=== PATIENT | female | born 1990 | race Caucasian/White ===

== ENCOUNTER 2018-04-16 09:24 | Outpatient (CLI) | payer OTHER | END 2018-04-16 12:34 | disposition home or self-care (01) | LOC: OBT 09:24 → L-D 09:24 → OBT 12:34 | DX: O48.0 Post-term pregnancy (principal); Z3A.40 40 weeks gestation of pregnancy | CPT/HCPCS: 76815; 76818 ==

== ENCOUNTER 2018-04-19 08:41 | Outpatient (CLI) | payer OTHER | END 2018-04-19 11:50 | disposition home or self-care (01) | LOC: OBT 08:41 → L-D 08:41 → OBT 11:50 | DX: O48.0 Post-term pregnancy (principal); Z3A.40 40 weeks gestation of pregnancy | CPT/HCPCS: 76818 ==

== ENCOUNTER 2018-04-21 21:28 | Outpatient (CLI) | payer OTHER | END 2018-04-21 22:31 | disposition home or self-care (01) | LOC: OBT 21:28 → L-D 21:28 → OBT 22:31 | DX: O60.03 Preterm labor without delivery, third trimester (principal); Z3A.40 40 weeks gestation of pregnancy | CPT/HCPCS: 76818 ==

== ENCOUNTER 2018-04-22 12:48 | Inpatient (IN) | payer OTHER ==
[2018-04-22] MEDS ORDERED: MISOPROSTOL 50 MCG CAPSULE PO (13:00)
[2018-04-22] MEDS ORDERED: MISOPROSTOL 200 MCG TAB PR (13:00)
[2018-04-22] MEDS ORDERED: BUTORPHANOL 2 MG INJ IV (13:00)
[2018-04-22] MEDS ORDERED: METHYLERGONOVINE 0.2 MG INJ IM (13:00)
[2018-04-22] MEDS ORDERED: CARBOPROST 250 MCG INJ IM (13:00)
[2018-04-22] MEDS ORDERED: LIDOCAINE 1% (MPF) 30 ML INJ INJ (13:00)
[2018-04-22] MEDS ORDERED: OXYTOCIN 30 UNITS/LR 500 ML IV ×2 (13:00→18:00)
[2018-04-22] MEDS: LACTATED RINGER'S 1,000 ML IV ×2 (13:20→19:52)
[2018-04-22 13:21] LABS: ADD MAN DIFF? NO
[2018-04-22 13:26] LABS: WHITE BLOOD COUNT 7.2 10^3/ul (4.8-10.8)
[2018-04-22 13:26] LABS: BASOPHILS % 0.3 % (0.0-2.0); EOSINOPHILS # 0.2 10^3/ul (0.0-0.5); EOSINOPHILS % 2.1 % (0.0-7.0); HEMATOCRIT 31.2 % (37.0-47.0); LYMPHOCYTES # 2.2 10^3/ul (0.8-2.9); MEAN CORPUSCULAR HEMOGLOBIN 27.1 pg (29.0-33.0); MEAN CORPUSCULAR HGB CONC 32.1 g/dl (32.0-37.0); MEAN CORPUSCULAR VOLUME 84.6 fl (82.0-101.0); MEAN PLATELET VOLUME 10.5 fl (7.4-10.4); MONOCYTE # 0.6 10^3/ul (0.3-0.9); MONOCYTES % 7.8 % (0.0-11.0); NEUTROPHIL # 4.2 10^3/ul (1.6-7.5); NEUTROPHILS % 58.5 % (39.0-77.0); PLATELET COUNT 280 10^3/UL (140-415); RED BLOOD COUNT 3.69 10^6/ul (4.20-5.40); RED CELL DISTRIBUTION WIDTH 15.3 % (11.5-14.5)
[2018-04-22 13:41] LABS: INR 0.84; PROTIME 11.6 Sec (11.9-14.9); PT RATIO 0.9
[2018-04-22 13:42] LABS: PARTIAL THROMBOPLASTIN TIME 26.7 Sec (23.0-35.0)
[2018-04-22 13:53] LABS: ALANINE AMINOTRANSFERASE 25 IU/L (13-69); ALBUMIN 3.4 g/dl (3.3-4.9); ALKALINE PHOSPHATASE 220 IU/L (42-121); ANION GAP 7 (5-13); ASPARTATE AMINO TRANSFERASE 25 IU/L (15-46); BLOOD UREA NITROGEN 11 mg/dl (7-20); CALCIUM 9.4 mg/dl (8.4-10.2); CARBON DIOXIDE 21 mmol/L (21-31); CHLORIDE 108 mmol/L (97-110); CREATININE 0.49 mg/dl (0.44-1.00); Estimated GFR > 60 mL/min (>60); GLUCOSE 84 mg/dl (70-220); POTASSIUM 4.6 mmol/L (3.5-5.1); SODIUM 136 mmol/L (135-144); TOTAL PROTEIN 6.8 g/dl (6.1-8.1)
[2018-04-22 14:23] LABS: HEPATITIS B SURFACE ANTIGEN NEGATIVE (NEGATIVE)
[2018-04-22 16:28] LABS: RAPID PLASMA REAGIN NONREACTIVE (NR)
[2018-04-22] MEDS: OXYTOCIN 30 UNITS/LR 500 ML IV (17:57)
[2018-04-22] MEDS: MISOPROSTOL 50 MCG CAPSULE PO ×2 (19:49)
[2018-04-22] MEDS ORDERED: FENTAnyl 2MCG/ML-ROPIV 0.2% 100 ML (21:35)
[2018-04-22] MEDS ORDERED: DIPHENHYDRAMINE 50 MG INJ IV (22:00)
[2018-04-22] MEDS ORDERED: FENTAnyl 2MCG/ML-ROPIV 0.2% 100 ML BAG EPI (22:00)
[2018-04-22] MEDS ORDERED: ONDANSETRON 4 MG INJ IV (22:00)
[2018-04-22] MEDS ORDERED: NALOXONE (0.4 MG/ML) INJ IV (22:00)
[2018-04-23] MEDS: MISOPROSTOL 50 MCG CAPSULE PO ×2 (02:00→02:57)
[2018-04-23] MEDS: LACTATED RINGER'S 1,000 ML IV (02:57)
[2018-04-23] MEDS: OXYTOCIN 30 UNITS/LR 500 ML IV ×2 (04:15→04:16)
[2018-04-23] MEDS: IBUPROFEN 600 MG TAB PO ×5 (04:43→23:40)
[2018-04-23] MEDS: MINERAL OIL LIGHT 10 ML VIAL TOP (04:46)
[2018-04-23] MEDS: DEXTROSE 5%-LR 1,000 ML IV (05:47)
[2018-04-23] MEDS: LACTATED RINGER'S 1,000 ML IV* (05:47)
[2018-04-23] MEDS ORDERED: METHYLERGONOVINE 0.2 MG INJ IM (06:00)
[2018-04-23] MEDS ORDERED: MISOPROSTOL 200 MCG TAB PR (06:00)
[2018-04-23] MEDS ORDERED: OXYCODONE/ASPIRIN (4.88/325) TAB PO (06:00)
[2018-04-23] MEDS ORDERED: ONDANSETRON 4 MG INJ IV (06:00)
[2018-04-23] MEDS ORDERED: ZOLPIDEM 5 MG TAB PO (06:00)
[2018-04-23] MEDS ORDERED: DIPHENHYDRAMINE 50 MG INJ IV (06:00)
[2018-04-23] MEDS ORDERED: OXYTOCIN 30 UNITS/LR 500 ML IV (06:00)
[2018-04-23] MEDS ORDERED: ACETAMINOPHEN 325 MG TAB PO (06:00)
[2018-04-23] MEDS ORDERED: SENNA/DOCUSATE NA (8.6MG/50MG) TAB PO (06:00)
[2018-04-23] MEDS ORDERED: CARBOPROST 250 MCG INJ IM (06:00)
[2018-04-23] MEDS: DIBUCAINE 1% 30 GM OINT TOP (08:12)
[2018-04-23] MEDS: LANOLIN HPA 1 PKT TOP (08:12)
[2018-04-23] MEDS: WITCH HAZEL/GLYCERIN PAD PR (08:12)
[2018-04-23] MEDS: BENZOCAINE 20% 56 ML SPRAY TOP (08:13)
[2018-04-24] MEDS: IBUPROFEN 600 MG TAB PO ×2 (05:18→12:17)
[2018-04-24 06:47] LABS: ADD MAN DIFF? NO
[2018-04-24 06:50] LABS: BASOPHILS % 0.2 % (0.0-2.0); EOSINOPHILS # 0.2 10^3/ul (0.0-0.5); EOSINOPHILS % 1.7 % (0.0-7.0); HEMATOCRIT 28.2 % (37.0-47.0); LYMPHOCYTES # 3.4 10^3/ul (0.8-2.9); LYMPHOCYTES % 26.8 % (15.0-51.0); MEAN CORPUSCULAR HEMOGLOBIN 27.7 pg (29.0-33.0); MEAN CORPUSCULAR HGB CONC 31.9 g/dl (32.0-37.0); MEAN CORPUSCULAR VOLUME 86.8 fl (82.0-101.0); MEAN PLATELET VOLUME 10.3 fl (7.4-10.4); MONOCYTE # 0.9 10^3/ul (0.3-0.9); MONOCYTES % 6.7 % (0.0-11.0); NEUTROPHIL # 8.1 10^3/ul (1.6-7.5); PLATELET COUNT 244 10^3/UL (140-415); RED BLOOD COUNT 3.25 10^6/ul (4.20-5.40); RED CELL DISTRIBUTION WIDTH 15.6 % (11.5-14.5)
[2018-04-24 06:50] LABS: WHITE BLOOD COUNT 12.6 10^3/ul (4.8-10.8)
[2018-04-24] MEDS: DIPHTH/TET/ACEL PERTUSS (ADULT) 0.5 ML VIAL IM* (10:37)
[2018-04-25] MEDS ORDERED: MEASLES,MUMPS,RUBELLA VACCINE INJ SC* (09:00)
[2018-04-25] MEDS ORDERED: INFLUENZA VIRUS VACCINE 0.5 ML (DISPENSING) IM* (10:00)
== END 2018-04-24 18:22 | disposition home or self-care (01) | DRG 807 ==
LOC: PP1 04-23 05:30 → L-D 12:48
PROC: 10E0XZZ Delivery of Products of Conception, External Approach (ICD-10-PCS; principal; 2018-04-23)
PROC: 0HQ9XZZ Repair Perineum Skin, External Approach (ICD-10-PCS; 2018-04-23)
DX: O48.0 Post-term pregnancy (principal); Z37.0 Single live birth; O70.0 First degree perineal laceration during delivery; Z3A.41 41 weeks gestation of pregnancy
CPT/HCPCS: 62319; 80053; 84560; 85025; 85384; 85610; 85730; 86592; 86850; 86900; 86901; 87340; 90715; 99464